=== PATIENT | female | born 1975 | race Two or more races ===

== ENCOUNTER 2019-08-30 09:25 | Emergency (ER) | payer OTHER, MEDICAID ==
[~2019-08-30] VITALS: Ht 154.9 cm; Wt 81.7 kg
[2019-08-30 09:31] VITALS: BP 143/72
== END 2019-08-30 10:53 | disposition home or self-care (01) ==
LOC: ED 10:40
DX: S90.112A Contusion of left great toe without damage to nail, initial encounter (principal); W22.8XXA Striking against or struck by other objects, initial encounter; Y93.89 Activity, other specified; Y92.69 Other specified industrial and construction area as the place of occurrence of the external cause; Y99.8 Other external cause status
CPT/HCPCS: 99283

== ENCOUNTER 2020-12-21 14:29 | Emergency (ER) | payer MEDICAID, OTHER ==
[~2020-12-21] VITALS: Ht 157.5 cm; Wt 90.5 kg
--- NOTE | 2020-12-21 14:45 | NUR ---
PT PRESENTS TO ED WITH C/O TOE PAIN RELATED TO POSSIBLE INFECTION X 2 WEEKS. PT A&O, RESPS EVEN AND UNLABORED, VSS, NADN. RODOLFO SAXENA AT BEDSIDE FOR EVAL.
[2020-12-21 14:48] VITALS: BP 154/82
--- NOTE | 2020-12-21 14:58 | NUR ---
betadine soak for feet in progress. no complaints at this time.
--- NOTE | 2020-12-21 15:52 | NUR ---
DISCHARGE INSTRUCTIONS REVIEWED, PT VERBALIZED UNDERSTANDING. PT AMBULATORY TO DISCHARGE WITH STEADY GAIT.
== END 2020-12-21 15:54 | disposition home or self-care (01) ==
LOC: ED 15:21
DX: B35.3 Tinea pedis (principal)
CPT/HCPCS: 99282